=== PATIENT | female | born 1985 | race Caucasian/White ===

== ENCOUNTER 2023-02-27 08:20 | Outpatient (CLI) | payer OTHER, SELFPAY ==
--- NOTE | ~2023-02-27 | XR_ITS ---
Left Hand Technique: PA, oblique, and lateral views were obtained. Clinical History: Pain Findings: No acute fracture or dislocation is seen. Osseous alignment is anatomic. Joint spaces are p reserved. Soft tissues are unremarkable. Impression: Unremarkable left hand. Reviewed, dictated and finalized at location M. [employer]IP[employer] CL[employer]YPIST Impression: Unremarkable left hand.
== END 2023-02-27 08:21 | disposition home or self-care (01) ==
PROVIDERS: PCP Physician Assistant; Visit Provider Physician Assistant Surgical
DX: S69.92XA Unspecified injury of left wrist, hand and finger(s), initial encounter (principal); X58.XXXA Exposure to other specified factors, initial encounter
CPT/HCPCS: 73130